=== PATIENT | female | born 1935 | race Caucasian/White ===

== ENCOUNTER 2016-12-20 09:19 | Day surgery (SDC) | payer MEDICARE, BC ==
[~2016-12-20 09:19] MED LIST: ASPIR-LOW81 M1 PO; ASPIR-TRIN325 M2 PO; ASPIR-TRIN325 MG PO; AZITHROMYCIN250 M1 PO; BROVANA15 MCG/22 IH; BYSTOLIC2.5 M1 PO; CENTRAL VITE TA1 TAB PO; CIPRO500 M2 PO; CLONAZEPAM0.5 M2 PO; CLONAZEPAM0.5 MG PO; CLOTRIMAZOLE10 M1 MM; COLACE100 M1 PO; COMBIVENT RESPIM4 G1 IH; COMBIVENT RESPIM4 G1 INH; CRANBERRY; CRANBERRY450 M5 PO; DOCUSATE SODIU100 M2 PO; DUONEB 2.5-0.5MG3 M1 AERO NEB; DYAZIDE 37.5/251 CAP PO; FISH OIL 1,0001 CA PO; FISH OIL 1,2001 EAC4 PO; FUROSEMIDE20 M1 PO; HYDROCODON-ACE1 EA16 PO; IPRAT-ALBUT 0.5-3 ML IH; IRON PO; IRON SUPPLEMEN325 MG PO; KLOR-CON 1010 ME1 PO; LEVAQUIN250 M3 PO; LIPITOR80 M1 PO; MEDS; MULTAQ400 M1 PO; MULTIVITAMINS1 EAC6 PO; NORVASC10 MG PO; NORVASC5 M2 PO; OXYGEN; PRAVASTATIN SOD20 M1 PO; PRILOSEC OTC20 MG PO; PROTONIX40 M2 PO; PULMICORT0.25 MG/1; PULMICORT0.5 MG/22 IH; SERTRALINE HCL50 M4 PO; TRAMADOL HCL50 M2 PO; TYLENOL325 M2 PO; TYLENOL325 MG PO; VITAMIN C500 MG PO; VITAMIN D1000 UNIT PO; VITAMIN D31000 UNI4 PO; WARFARIN SODIUM3 M2 PO; ZOLOFT50 MG PO
[2016-12-20 10:38] LABS: BASO % 0.6 % (0-2); BASO ABSOLUTE COUNT 0.1 tho/cmm (0.0-0.2); EOS % 1.6 % (0-7); EOSINOPHIL ABSOLUTE COUNT 0.1 tho/cmm (0.0-0.7); HCT-HEMATOCRIT 36.4 % (34.0-49.0); HGB-HEMOGLOBIN 11.1 gm/dl (12.0-15.5); IMMATURE GRANULOCYTES ABSOLUTE 0.01 tho/cmm (0-0.03); IMMATURE GRANULOCYTES PERCENT 0.1 % (0-0.3); LYMPH % 13.2 % (20-45); LYMPH ABSOLUTE COUNT 1.2 tho/cmm (0.8-4.5); MCH (MEAN CORPUSCULAR HGB) 28.4 pg (28.0-32.0); MCHC MEAN CORPUSCULAR HGB CONC 30.5 % (32.0-36.0); MCV (MEAN CELL VOLUME) 93.1 fl (82.0-96.0); MEAN PLATELET VOLUME 9.4 cmc (9.4-12.4); MONOCYTE ABSOLUTE COUNT 0.6 tho/cmm (0.0-1.2); NEUTROPHIL ABSOLUTE COUNT 6.8 tho/cmm (1.6-8.0); NEUTROPHIL-AUTOMATED 6.8 tho/cmm (1.6-8.0); NEUTROPHILS % 77.5 % (40-80); PLATELET COUNT 274 tho/cmm (150-450); RED BLOOD COUNT 3.91 mil/cmm (4.00-5.20); RED CELL DISTRIBUTION WIDTH 15.5 % (12.4-16.4); WHITE BLOOD COUNT 8.8 tho/cmm (4.0-10.0)
[2016-12-20 10:39] LABS: PROTHROMBIN TIME 11.3 SECONDS (9.0-13.6)
[2016-12-20 10:46] LABS: ANION GAP 11 mmol/L (0-20); BLOOD UREA NITROGEN 34 mg/dl (6-24); CALCIUM 8.9 mg/dl (8.5-10.5); CARBON DIOXIDE-VENOUS 30 mmol/L (22-32); CHLORIDE 107 mmol/l (96-110); CREATININE 2.32 mg/dl (0.50-1.10); GLUCOSE 115 mg/dL (70-110); POTASSIUM 4.4 mmol/L (3.7-5.1); SODIUM 144 mmol/L (135-145); eGFR VALUE FOR BLACK 22 mL/Min
== END 2016-12-20 15:35 ==
LOC: SHSB 09:19
PROVIDERS: Radiology Diagnostic Radiology
PROC: 0T25X0Z Change Drainage Device in Kidney, External Approach (ICD-10-PCS; principal; 2016-12-20)
DX: Z46.6 Encounter for fitting and adjustment of urinary device (principal); N13.30 Unspecified hydronephrosis; I48.91 Unspecified atrial fibrillation; I12.9 Hypertensive chronic kidney disease with stage 1 through stage 4 chronic kidney disease, or unspecified chronic kidney disease; N18.3 Chronic kidney disease, stage 3 (moderate); J44.9 Chronic obstructive pulmonary disease, unspecified; F32.9 Major depressive disorder, single episode, unspecified; E78.5 Hyperlipidemia, unspecified; G25.81 Restless legs syndrome; I34.0 Nonrheumatic mitral (valve) insufficiency; Z85.51 Personal history of malignant neoplasm of bladder; Z98.890 Other specified postprocedural states; Z88.1 Allergy status to other antibiotic agents; Z88.2 Allergy status to sulfonamides; Z88.8 Allergy status to other drugs, medicaments and biological substances; Z79.899 Other long term (current) drug therapy; Z85.42 Personal history of malignant neoplasm of other parts of uterus; Z90.710 Acquired absence of both cervix and uterus; Z87.891 Personal history of nicotine dependence
CPT/HCPCS: J1956; J2250; J3010; J7030; Q9967